=== PATIENT | male | born 1970 | race Caucasian/White ===

== ENCOUNTER 2021-08-13 05:32 | Outpatient (CLI) | payer BC ==
[~2021-08-13] VITALS: Ht 170.2 cm; Wt 88.5 kg
[2021-08-13] MEDS ORDERED: OMEP40CA6 PO (10:07)
[2021-08-13] MEDS ORDERED: ATOR40TA70 PO (10:07)
== END 2021-08-13 10:33 ==
LOC: PREOP 05:32
PROVIDERS: ATTEND Internal Medicine
DX: Z01.818 Encounter for other preprocedural examination (principal)

== ENCOUNTER 2021-08-21 07:04 | Day surgery (SDC) | payer BC ==
--- NOTE | 2021-08-12 19:22 | HISTORY AND PHYSICAL ---
DATE OF SERVICE: COLONOSCOPY HISTORY AND PHYSICAL HISTORY: The patient is a 51-year-old white male seen in the office for followup of hyperlipidemia. He had no previous screening colonoscopy. He is deemed to be of average risk. He is not aware of any family history for colon cancer. He has had no bright red blood per rectum, melena, or change in bowel habit. He reports that on 2 occasions, he has had a blister on the tip of his left ring finger that has not been associated with trauma that he is aware of. It remains swollen for at least a week and sometimes he has popped the blister and the last time he popped the blister, draining a little bit of serous fluid only, denied any purulence. Denies any chills or fever, but will have some neuropathic sounding symptoms traveling up the left forearm. He is just getting over an episode and the last time this occurred was about 2 years ago. He denies rash anywhere else. He has been feeling well otherwise. He continues to work out with his son on a regular basis with weight training as well as aerobics and is discouraged by lack of weight loss. In taking dietary history, portion control still sounds like it could be improved significantly and discussed overall physical activity was important for overall health irrespective of weight, but cutting back on calories was going to have more of an impact. PHYSICAL EXAMINATION: GENERAL: Reveals a white male, appeared to be in no acute distress. VITAL SIGNS: Blood pressure 134/86. HEENT: Unremarkable. Sclerae nonicteric. CHEST: Clear to auscultation. CARDIOVASCULAR: Reveals regular rate and rhythm without murmur, S3 or S4. ABDOMEN: Soft, supple without mass, organomegaly or tenderness. EXTREMITIES: Reveal no cyanosis, clubbing or edema. SKIN: Evaluation revealed multiple non-dysplastic nevi on the trunk. Predominantly, there is an area of erythema over the tip of the left ring corresponded to the location of the swelling the patient was describing. ASSESSMENT AND PLAN: 1. The patient was set up for his first screening colonoscopy. Prep instructions with the Suprep kit were given and questions were answered. 2. Hyperlipidemia, has been under good control on statin therapy. Discussed the importance of portion control for weight loss. 3. Blistering eruption including the tip of the left ring finger. This occurred on 2 occasions with some neuropathic symptoms. Suspect herpes simplex, discussed to come in for cultures during any future episodes. The patient reassured. Otherwise, we will see him back in 6 months with a chemistry panel, lipid panel, and PSA. Job ID: [id number] DocumentID: [id number] Dictated Date: 07/29/2021 16:31:45 Fire Equipment Inspector Helper Date: 07/29/2021 16:51:49 Dictated By: SADI MIRANDA MD
[~2021-08-21] VITALS: Ht 170.2 cm; Wt 88.5 kg
[~2021-08-21 07:04] MED LIST: ATOR40TA70 PO; OMEP40CA6 PO
[2021-08-21] MEDS ORDERED: LACTATED RINGERS 1,000 ML IV STA (07:06)
[2021-08-21] MEDS ORDERED: LACTATED RINGERS 1,000 ML IV ONE (07:09)
[2021-08-21] MEDS ORDERED: LIDOCAINE JELLY 2% 6 ML SYRINGE MM PRN (07:15)
[2021-08-21 07:17] VITALS: BP 156/101
[2021-08-21] MEDS ORDERED: MIDAZOLAM 2 MG/2 ML (VERSED) VIAL ONE (07:21)
[2021-08-21] MEDS ORDERED: PROPOFOL INJECTION 50 ML IV ONE ×2 (07:22→07:57)
--- NOTE | 2021-08-21 07:33 | Pre-Op Note & Conscious Sedat ---
Pre-Operative Progress Note H&P Reviewed The H&P was reviewed, patient examined and no changes noted. Date H&P Reviewed: Aug 21, 2021 Time H&P Reviewed: 07:20 Conscious Sedation Pre-Proced ASA Score 2 For ASA 3 and 4: Consider anesthesia and medical clearance. Also, for patients with a history of failed moderate sedation consider anesthesia. Airway Lungs Heart ASA score ASA 1: a normal healthy patient ASA 2: a patient with a mild systemic disease (mid diabetes, controlled hypertension, obesity ASA 3: a patient with a severe systemic disease that limits activity (angina, COPD, prior Myocardial infarction) ASA 4: a patient with an incapacitating disease that is a constant threat to life (CHF, renal failure) ASA 5: a moribund patient not expected to survive 24 hrs. (ruptured aneurysm) ASA 6: a declared brain- patient whose organs are being harvested. For emergent operations, add the letter E after the classification Mallampati Classification Grade 2 Sedation Plan Analgesia, Amnesia, Plan communicated to team members, Discussed options with patient/fam, Discussed risks with patient/fam The patient is an appropriate candidate to undergo the planned procedure, sedation, and anesthesia. The patient immediately re-assessed prior to indication. SADI MIRANDA MD Aug 21, 2021 07:33
[2021-08-21 08:15] VITALS: BP 127/65
[2021-08-21 08:20] VITALS: BP 115/58
[2021-08-21 08:25] VITALS: BP 117/76
[2021-08-21 08:44] VITALS: BP 136/94
[2021-08-21 08:53] VITALS: BP 156/101
--- NOTE | 2021-08-21 12:59 | OPERATIVE REPORT ---
DATE OF SERVICE: COLONOSCOPY SUMMARY INDICATION FOR THE PROCEDURE: Screening colonoscopy. PRIMARY CARE PROVIDER: Sadi Miranda MD. DESCRIPTION OF PROCEDURE: The patient was placed in the left lateral decubitus position. Prior to undergoing colonoscopy, a digital rectal evaluation was performed. Anal sphincter tone was normal and the perianal reflex was intact. The prostate was normal size, anodular on digital inspection. No abnormalities were noted on digital inspection of the anal canal or distal rectal vault. The colonoscope was then inserted into the rectum and under direct visualization advanced to the cecum. The cecum was identified by identification of the ileocecal valve and cecal strap. Photographic documentation was obtained. Careful inspection was made as the colonoscope was withdrawn. The procedure was done under AI surveillance as well with the [facility]. FINDINGS: There was no evidence for external hemorrhoids. There was one small grade I internal hemorrhoid complex noted. The rectum, sigmoid colon, descending colon, splenic flexure, transverse colon, hepatic flexure, ascending colon, and cecum were unremarkable under fair prep conditions. ASSESSMENT: Normal colonoscopy to the cecum including digital evaluation of the prostate. We will advocate consideration for repeat surveillance colonoscopy in 10 years as the patient is not aware of any family history for colon cancer. Job ID: [id number] DocumentID: [id number] Dictated Date: 08/21/2021 08:49:15 Irrigation Manager Date: 08/21/2021 12:58:49 Dictated By: SADI MIRANDA MD
--- NOTE | 2021-08-21 13:47 | Anesthesia-General Post-Op ---
MAC Patient Condition Mental Status/LOC: Same as Preop Cardiovascular: Satisfactory Nausea/Vomiting: Absent Respiratory: Satisfactory Pain: Controlled Complications: Absent Post Op Complications Complications None Follow Up Care/Instructions Patient Instructions None needed. Anesthesiology Discharge Order Discharge Order Patient is doing well, no complaints, stable vital signs, no apparent adverse anesthesia problems. No complications reported per nursing. KEEGAN VALLE CRNA Aug 21, 2021 13:47
== END 2021-08-21 09:00 | disposition home or self-care (01) ==
LOC: ENDO 07:04
PROVIDERS: ATTEND Internal Medicine
DX: Z12.11 Encounter for screening for malignant neoplasm of colon (principal); K64.0 First degree hemorrhoids; E78.5 Hyperlipidemia, unspecified; Z79.899 Other long term (current) drug therapy

== ENCOUNTER → 2022-08-02 | Outpatient (CLI) | payer BC ==
--- NOTE | 2022-08-02 15:58 | Diagnostic Imaging Report ---
EXAMINATION: Right hip radiographs, 2 views. COMPARISON: None. HISTORY: 52-year-old male, right hip pain. No known injury. FINDINGS: The right hip is not dislocated. There is no joint space loss of the right hip, osteophyte formation, or subchondral cystic change. The right sacroiliac joint is unremarkable in appearance. There is mild degenerative type enthesopathy at the right iliac crest. There is no identified acute fracture. IMPRESSION: Unremarkable radiographs of the right hip. Dictated by: Dictated on workstation # [id number]
== END ==
LOC: RAD 09:28
PROVIDERS: ATTEND Internal Medicine
DX: M25.551 Pain in right hip (principal)
CPT/HCPCS: 73502